=== PATIENT | male | born 1960 | race African-American/Black ===

== ENCOUNTER 2016-11-18 09:30 | Day surgery (SDC) | payer BC, OTHER ==
[2016-11-18] MEDS ORDERED: D5 LR 1000 ML 1,000 ML IV ONE (10:06)
[2016-11-18] MEDS ORDERED: DIPRIVAN VIAL 20 ML ONE ×2 (11:03→11:21)
[2016-11-18 11:45] VITALS: BP 133/67
== END 2016-11-18 11:54 | disposition home or self-care (01) ==
LOC: SURG1 09:30
PROVIDERS: ATTEND Internal Medicine Gastroenterology
PROC: 0DJD8ZZ Inspection of Lower Intestinal Tract, Via Natural or Artificial Opening Endoscopic (ICD-10-PCS; principal; 2016-11-18 16:15)
PROC: 0DBP8ZX Excision of Rectum, Via Natural or Artificial Opening Endoscopic, Diagnostic (ICD-10-PCS; principal; 2016-11-18 16:15)
DX: K92.1 Melena (principal); R19.4 Change in bowel habit; K63.5 Polyp of colon; K64.0 First degree hemorrhoids; K64.8 Other hemorrhoids
CPT/HCPCS: A4217; J3490; J7120